=== PATIENT | male | born 1995 | race American Indian/Alaskan Native ===

== ENCOUNTER 2017-02-13 22:49 | Emergency (ER) | payer OTHER ==
[2017-02-14] MEDS ORDERED: TYLENOL PO ONE (01:01)
[2017-02-14] MEDS ORDERED: TYLENOL #3 PO ONE (05:46)
[2017-02-14] MEDS ORDERED: MOTRIN PO ONE (05:47)
--- NOTE | 2017-02-14 05:48 | Emergency Department Report ---
ED ENT HPI - General Chief complaint: Dental/Oral Stated complaint: MOUTH PAIN Time Seen by Provider: 02/14/17 05:42 Source: patient Mode of arrival: Ambulatory Limitations: No Limitations - History of Present Illness Initial comments: 21-year-old male past medical history none presents with complaint of left- sided facial swelling and toothache for approximately 3-4 days. Patient speaking in full sentences denies pus or blood drainage from mouth no trismus noted drooling. Speaking in full sentences. Denies fevers or chills. Eyes any recent dental work. MD complaint: tooth pain Onset/Timin -: days(s) Location: tooth # 1 - dental tenderness here Severity scale (0 -10): 7 Quality: aching Consistency: constant Improves with: none Worsens with: eating Context- Dental: poor dental care Associated Symptoms: gum swelling, toothache - Related Data Previous Rx's Medication Instructions Recorded Last Taken Type Acetaminophen/Codeine [Tylenol 1 tab PO Q6H PRN #12 tab 02/14/17 Unknown Rx /Codeine # 3 tab] Benzocaine [Orajel Liquid 20%] 1 ml MM Q6HR PRN #1 bottle 02/14/17 Unknown Rx Chlorhexidine Mouthwash [Peridex] 15 ml MM BID #1 bottle 02/14/17 Unknown Rx Clindamycin [Clindamycin CAP] 300 mg PO Q6H #28 capsule 02/14/17 Unknown Rx Ibuprofen [Motrin] 800 mg PO Q8HR PRN #30 tablet 02/14/17 Unknown Rx Allergies Allergy/AdvReac Type Severity Reaction Status Date / Time No Known Allergies Allergy Verified 02/14/17 01:01 ED Dental HPI - General Chief complaint: Dental/Oral Stated complaint: MOUTH PAIN Time Seen by Provider: 02/14/17 05:42 Source: patient Mode of arrival: Ambulatory Limitations: No Limitations - Related Data Previous Rx's Medication Instructions Recorded Last Taken Type Acetaminophen/Codeine [Tylenol 1 tab PO Q6H PRN #12 tab 02/14/17 Unknown Rx /Codeine # 3 tab] Benzocaine [Orajel Liquid 20%] 1 ml MM Q6HR PRN #1 bottle 02/14/17 Unknown Rx Chlorhexidine Mouthwash [Peridex] 15 ml MM BID #1 bottle 02/14/17 Unknown Rx Clindamycin [Clindamycin CAP] 300 mg PO Q6H #28 capsule 02/14/17 Unknown Rx Ibuprofen [Motrin] 800 mg PO Q8HR PRN #30 tablet 02/14/17 Unknown Rx Allergies Allergy/AdvReac Type Severity Reaction Status Date / Time No Known Allergies Allergy Verified 02/14/17 01:01 ED Review of Systems ROS: Stated complaint: MOUTH PAIN Other details as noted in HPI Constitutional: denies: chills, fever Eyes: denies: eye pain, eye discharge, vision change ENT: dental pain. denies: ear pain, throat pain Respiratory: denies: cough, shortness of breath, wheezing Cardiovascular: denies: chest pain, palpitations Endocrine: no symptoms reported Gastrointestinal: denies: abdominal pain, nausea, diarrhea Genitourinary: denies: urgency, dysuria Musculoskeletal: denies: back pain, joint swelling, arthralgia Skin: denies: rash, lesions Neurological: denies: headache, weakness, paresthesias Psychiatric: denies: anxiety, depression Hematological/Lymphatic: denies: easy bleeding, easy bruising ED Past Medical Hx - Past Medical History Previous Medical History?: No - Surgical History Past Surgical History?: No - Social History Smoking Status: Never Smoker - Medications Home Medications: Home Medications Medication Instructions Recorded Confirmed Last Taken Type Acetaminophen/Codeine [Tylenol 1 tab PO Q6H PRN #12 tab 02/14/17 Unknown Rx /Codeine # 3 tab] Benzocaine [Orajel Liquid 20%] 1 ml MM Q6HR PRN #1 bottle 02/14/17 Unknown Rx Chlorhexidine Mouthwash [Peridex] 15 ml MM BID #1 bottle 02/14/17 Unknown Rx Clindamycin [Clindamycin CAP] 300 mg PO Q6H #28 capsule 02/14/17 Unknown Rx Ibuprofen [Motrin] 800 mg PO Q8HR PRN #30 tablet 02/14/17 Unknown Rx ED Physical Exam - General Limitations: No Limitations General appearance: alert, in no apparent distress - Head Head exam: Present: atraumatic, normocephalic - Eye Eye exam: Present: normal appearance, PERRL, EOMI - ENT ENT exam: Present: mucous membranes moist - Expanded ENT Exam Expanded Teeth exam: Present: dental caries, dental tenderness #, gingival enlargement 1 - Dental Tenderness (dental tenderness here) - Neck Neck exam: Present: normal inspection, full ROM - Respiratory Respiratory exam: Present: normal lung sounds bilaterally. Absent: respiratory distress - Cardiovascular Cardiovascular Exam: Present: regular rate, normal rhythm. Absent: systolic murmur, diastolic murmur, rubs, gallop - GI/Abdominal GI/Abdominal exam: Present: soft, normal bowel sounds - Rectal Rectal exam: Present: deferred - Extremities Exam Extremities exam: Present: normal inspection - Back Exam Back exam: Present: normal inspection - Neurological Exam Neurological exam: Present: alert, oriented X3 - Psychiatric Psychiatric exam: Present: normal affect, normal mood - Skin Skin exam: Present: warm, dry, intact, normal color. Absent: rash ED Course Vital Signs 02/14/17 01:04 Temperature 100.9 F H Pulse Rate 72 Respiratory 18 Rate Blood Pressure 135/57 O2 Sat by Pulse 99 Oximetry ED Medical Decision Making - Medical Decision Making A/P: dental cavities, toothache, dental abscess 1- Motrin when necessary, amoxicillin ten-day course, Orajel when necessary, Peridex mouthwash daily basis, short course codeine when necessary 2- I provided patient with information for multiple dental clinics to follow up and stressed the importance of dental follow-up as he has multiple cavities that require dental fixation or instrumentation 3- no clinical signs of facial abscess, no Ajit's angina, no induration or cellulitis of floor of mouth or tongue 4- patient able to tolerate by mouth before discharge 5- no signs of facial infection. Advised patient that if he does not take antibiotics with follow-up with a dentist as soon as possible that a can result in potentially serious or dangerous infection to develop in jaw or face. Patient states that he understood these instructions. I advised patient to return to the ED for any persistent unrelenting nausea or vomiting fever or chills or headaches. Critical care attestation.: If time is entered above; I have spent that time in minutes in the direct care of this critically ill patient, excluding procedure time. ED Disposition Clinical Impression: Dental abscess Disposition: DC-01 TO HOME OR SELFCARE Is pt being admited?: No Does the pt Need Aspirin: No Condition: Stable Instructions: Dental Abscess (ED) Prescriptions: Acetaminophen/Codeine [Tylenol /Codeine # 3 tab] 1 tab PO Q6H PRN #12 tab PRN Reason: Toothache Benzocaine [Orajel Liquid 20%] 1 ml MM Q6HR PRN #1 bottle PRN Reason: Toothache Chlorhexidine Mouthwash [Peridex] 15 ml MM BID #1 bottle Clindamycin [Clindamycin CAP] 300 mg PO Q6H #28 capsule Ibuprofen [Motrin] 800 mg PO Q8HR PRN #30 tablet PRN Reason: Fever Referrals: [facility] [Outside] - 3-5 Days Time of Disposition: 05:46
[2017-02-14 06:59] VITALS: BP 113/60
== END 2017-02-14 06:10 | disposition home or self-care (01) ==
LOC: ED 22:49
DX: K04.7 Periapical abscess without sinus (principal)
CPT/HCPCS: 99282